=== PATIENT | male | born 1990 | race Caucasian/White ===

== ENCOUNTER 2021-08-11 20:02 | Emergency (ER) | payer OTHER ==
[~2021-08-11] VITALS: Ht 175.3 cm; Wt 77.1 kg
[2021-08-11] MEDS ORDERED: KEPPRA XR500 MG PO (20:17)
[2021-08-11] MEDS ORDERED: MEDROLDOSEPACK PO (21:29)
[2021-08-11] MEDS ORDERED: TESSALON PERLE100 MG PO (21:29)
[2021-08-11 21:41] LABS: INFLUENZA A ANTIGEN Negative (Negative); INFLUENZA B ANTIGEN Negative (Negative)
[2021-08-11 21:46] VITALS: BP 130/69
== END 2021-08-11 21:46 | disposition home or self-care (01) ==
LOC: M.ERS 20:02
PROVIDERS: Emergency Medicine
DX: J06.9 Acute upper respiratory infection, unspecified (principal); Z20.822 Contact with and (suspected) exposure to COVID-19; Z79.899 Other long term (current) drug therapy